=== PATIENT | male | born 1975 | race Caucasian/White ===

== ENCOUNTER 2018-02-14 12:53 | Inpatient (IN) | payer OTHER ==
[2018-02-14 13:26] VITALS: BMI 24.3
[2018-02-14] MEDS ORDERED: chlordiazePOXIDE HCL 25 MG CAPSULE PO PRN (17:09)
[2018-02-14] MEDS ORDERED: hydrOXYzine PAMOATE 50 MG CAPSULE (FP) PO PRN (17:09)
[2018-02-14] MEDS ORDERED: guaiFENesin/D-METHORPHAN HB 10 ML UNIT-DOSE CUPS PO PRN (17:09)
[2018-02-14] MEDS ORDERED: ACETAMINOPHEN 325 MG TABLET (FP) PO PRN (17:09)
[2018-02-14] MEDS ORDERED: MAGNESIUM CITRATE 300 ML BOTTLE PO PRN (17:09)
[2018-02-14] MEDS ORDERED: P-EPHED 60MG/TRIPROLIDI 2.5MG TABLET PO PRN (17:09)
[2018-02-14] MEDS ORDERED: MAGNESIUM HYDROX 2400MG/30ML ORAL SUSPENSION 30 ML CUP PO PRN (17:09)
[2018-02-14] MEDS ORDERED: NICOTINE POLACRILEX 2 MG GUM BC PRN (17:09)
[2018-02-14] MEDS ORDERED: MENTHOL/PHENOL 1 EACH UD MM PRN (17:09)
[2018-02-14] MEDS ORDERED: MAG HYDROX/AL HYDROX/SIMETH 30 ML UNIT-DOSE CUP PO PRN (17:09)
[2018-02-14] MEDS ORDERED: LOPERAMIDE HCL 2 MG CAPSULE PO PRN (17:09)
[2018-02-14] MEDS ORDERED: IBUPROFEN 400 MG TABLET (FP) PO PRN (17:09)
--- NOTE | 2018-02-14 17:19 | HP ---
CIWA Score - CIWA Score Nausea/Vomitin-No Nausea/No Vomiting Muscle Tremors: 3 Anxiety: 1-Mildly Anxious Agitation: 0-Normal Activity Paroxysmal Sweats: 3 Orientation: 0-Oriented Tacttile Disturbances: 0-None Auditory Disturbances: 0-None Visual Disturbances: 1-Very Mild Sensitivity Headache: 1-Very Mild CIWA-Ar Total Score: 9 Admission ROS BHS - HPI Chief Complaint: alcohol withdrawal sx Allergies/Adverse Reactions: Allergies Allergy/AdvReac Type Severity Reaction Status Date / Time Penicillins Allergy Severe Vomiting Verified 02/14/18 17:04 History of Present Illness: 42 yo male with hx of alcohol and nicotine dependence is here seeking detox. Denies any suicidal / homicidal ideation. Denies psychiatric and medical problems. Reports hx of psychiatric admission because he stated that he was hearing voices , does not recall date of admission. Reports was at [facility] last week and attempted to detox and left after 1.5 days. Denies hx of blackouts or seizures. Longest period of sobriety 2.5 years. Exam Limitations: No Limitations - Ebola screening Have you traveled outside of the country in the last 21 days: No Have you had contact with anyone from an Ebola affected area: No Have you been sick,other than usual withdrawal symptoms: No Do you have a fever: No - Review of Systems Constitutional: Chills, Changes in sleep, Unintentional Wgt. Loss EENT: reports: No Symptoms Reported Respiratory: reports: No Symptoms reported Cardiac: reports: No Symptoms Reported GI: reports: Poor Appetite, Poor Fluid Intake : reports: No Symptoms Reported Musculoskeletal: reports: No Symptoms Reported Integumentary: reports: No Symptoms Reported Neuro: reports: See HPI Endocrine: reports: Increased Thirst Hematology: reports: No Symptoms Reported Psychiatric: reports: Orientated x3, Depressed Other Systems: Reviewed and Negative Patient History - Patient Medical History Hx Anemia: No Hx Asthma: No Hx Chronic Obstructive Pulmonary Disease (COPD): No Hx Cancer: No Hx Cardiac Disorders: No Hx Congestive Heart Failure: No Hx Hypertension: No Hx Hypercholesterolemia: No Hx Pacemaker: No HX Cerebrovascular Accident: No Hx Seizures: No Hx Diabetes: No Hx Gastrointestinal Disorders: No Hx Liver Disease: No Hx Genitourinary Disorders: No Hx Sexually Transmitted Disorders: No Hx Renal Disease (ESRD): No Hx Thyroid Disease: No Hx Human Immunodeficiency Virus (HIV): No Hx Hepatitis C: No Hx Depression: No Hx Suicide Attempt: No Hx Bipolar Disorder: No Hx Schizophrenia: No - Patient Surgical History Past Surgical History: Yes Hx Orthopedic Surgery: Yes (sx for hammertoes both feet as a child.) - PPD History Previous Implant?: Yes Documented Results: Negative w/o proof Implanted On Prior [facility] Admission?: No PPD to be Administered?: Yes - Smoking Cessation Smoking history: Current every day smoker Have you smoked in the past 12 months: Yes Aproximately how many cigarettes per day: 11 Hx Chewing Tobacco Use: No Initiated information on smoking cessation: Yes 'Breaking Loose' booklet given: 02/14/18 - Substance & Tx. History Hx Alcohol Use: Yes Hx Substance Use: Yes Substance Use Type: Alcohol Hx Substance Use Treatment: Yes - Substances Abused Alcohol Route: Oral Frequency: Daily Amount used: 7-8 24 oz beers Age of first use: 10 Date of Last Use: 02/14/18 Marijuana/Hashish Route: Smoking Frequency: 1-2 times per week Amount used: 1/2 joint Age of first use: 16 Date of Last Use: 02/07/18 Family Disease History - Family Disease History Family History: Unable to Obtain Admission Physical Exam BHS - Vital Signs Vital Signs: Vital Signs - 24 hr 02/14/18 13:22 Temperature 97.6 F Pulse Rate 96 H Respiratory 18 Rate Blood Pressure 134/88 - Physical General Appearance: Yes: Disheveled, Alcohol on Breath, Tremorous, Sweating, Other (malodorous, dischevelled, patient not dressed appropriately for weather, currently 87 degree weather patient wearing winter clothing) HEENTM: Yes: EOMI, Hearing grossly Normal, Normal ENT Inspection, Normocephalic , Normal Voice, LOUISA, Pharynx Normal, Tm's normal Respiratory: Yes: Chest Non-Tender, Lungs Clear, No Respiratory Distress, No Accessory Muscle Use, Wheezing Neck: Yes: No masses,lesions,Nodules, Trachea in good position Breast: Yes: Breast Exam Deferred Cardiology: Yes: Regular Rhythm, Regular Rate Abdominal: Yes: Normal Bowel Sounds, Non Tender, Flat, Soft Genitourinary: Yes: Within Normal Limits Back: Yes: Normal Inspection Musculoskeletal: Yes: full range of Motion, Gait Steady, Pelvis Stable Extremities: Yes: Normal Capillary Refill, Normal Inspection, Normal Range of Motion, Non-Tender Neurological: Yes: wine specialist II-XII NML intact, Fully Oriented, Motor Strength 5/5, Other (flat affect) Integumentary: Yes: Normal Color, Warm, Diaphoresis, Other (slivery flaky skin around bear, healing abrasion on the left forearm) Lymphatic: Yes: Within Normal Limits - Diagnostic (1) Alcohol dependence with withdrawal Current Visit: Yes Status: Acute Qualifiers: Complication of substance-induced condition: uncomplicated Qualified Code(s ): F10.230 - Alcohol dependence with withdrawal, uncomplicated (2) Dehydration Current Visit: Yes Status: Acute (3) Weight loss Current Visit: Yes Status: Acute (4) Nicotine dependence Current Visit: Yes Status: Acute Qualifiers: Nicotine product type: cigarettes Cleared for Admission [facility] - Detox or Rehab [facility] Level of Care: Medically Supervised Detox Regimen/Protocol: Librium [facility] Breath Alcohol Content Breath Alcohol Content: 0.265 Urine Drug Screen - Results Drug Screen Negative: No Urine Drug Screen Results: BZO-Benzodiazepines
[2018-02-14] MEDS ORDERED: chlordiazePOXIDE HCL 25 MG CAPSULE PO ONE (17:45)
[2018-02-14] MEDS: chlordiazePOXIDE HCL 25 MG CAPSULE PO SCH (22:12)
[2018-02-14] MEDS: MELATONIN 5 MG TABLETS PO PRN (22:14)
[2018-02-14] MEDS: THIAMINE HCL 100 MG TABLET (FP) PO SCH (22:14)
[2018-02-14 23:11] LABS: URINE APPEARANCE CLEAR; URINE BILIRUBIN NEGATIVE (<2.0 mg/dL); URINE COLOR LTYELLOW; URINE GLUCOSE (UA) NEGATIVE (NEGATIVE); URINE KETONE NEGATIVE (NEGATIVE); URINE LEUK ESTERASE NEGATIVE (NEGATIVE); URINE NITRITE NEGATIVE (NEGATIVE); URINE PROTEIN NEGATIVE (NEGATIVE); URINE UROBILINOGEN NEGATIVE mg/dL (0.2-1.0)
[2018-02-15] MEDS: chlordiazePOXIDE HCL 25 MG CAPSULE PO SCH ×4 (06:02→22:06)
[2018-02-15 10:06] LABS: HEMATOCRIT 30.7 % (35.4-49); HEMOGLOBIN 9.6 GM/dL (11.7-16.9); MCH 23.6 pg (25.7-33.7); MCHC 31.2 g/dl (32.0-35.9); MEAN CELL VOLUME 75.8 fl (80-96); MEAN PLT VOLUME 8.6 fl (7.5-11.1); PLATELET COUNT 194 K/MM3 (134-434); RBC 4.05 M/mm3 (4.00-5.60); RDW 21.6 % (11.9-15.9); WHITE BLOOD COUNT 6.3 K/mm3 (4.0-10.0)
[2018-02-15 10:20] LABS: CHLORIDE 105 mmol/L (98-107); POTASSIUM 3.8 mmol/L (3.5-5.1); SODIUM 139 mmol/L (136-145)
[2018-02-15 10:40] LABS: ALBUMIN 3.1 g/dl (3.4-5.0); ALK PHOS 72 U/L (45-117); ANION GAP 6 (8-16); BILIRUBIN,TOTAL 0.3 mg/dL (0.2-1.0); BLOOD UREA NITROGEN 9 mg/dL (7-18); CO2 28 mmol/L (21-32); CREATININE 0.7 mg/dL (0.7-1.3); GLUCOSE,RANDOM 97 mg/dL (74-106); SGOT/AST 18 U/L (15-37); SGPT/ALT 15 U/L (12-78); TOT PROT 6.2 g/dl (6.4-8.2)
[2018-02-15] MEDS: PRENATAL VITAMINS W/ FOLIC ACID TABLET (FP) PO SCH (10:42)
[2018-02-15] MEDS: NICOTINE 14 MG/24 HOURS TOPICAL PATCH TD SCH (10:42)
[2018-02-15 11:18] LABS: ANISOCYTOSIS 1+
--- NOTE | 2018-02-15 11:28 | EKG ---
Test Reason : Blood Pressure : / mmHG Vent. Rate : 087 BPM Atrial Rate : 087 BPM P-R Int : 136 ms QRS Dur : 086 ms QT Int : 362 ms P-R-T Axes : 060 -07 046 degrees QTc Int : 435 ms NORMAL SINUS RHYTHM NORMAL ECG NO PREVIOUS ECGS AVAILABLE Confirmed by DEEPTHI RIVAS MD ([id number]) on 02/15/2018 11:28:31 AM Referred By: Confirmed By:DEEPTHI RIVAS MD
--- NOTE | 2018-02-15 14:33 | CONSULT ---
[facility] Psychiatric Consult - Data Date of interview: 02/15/18 Admission source: [facility] Identifying data: First admission to [facility] for this 42 y/o male seeking detox treatment on for alcohol and cannabis (K2) dependence.Patient is single without children,domiciled,unemployed and supported on food stamps. Substance Abuse History: Confirmed by patient in this interview.Smoking history : Current every day smoker. Have you smoked in the past 12 months: Yes. Aproximately how many cigarettes per day: 11. Hx Chewing Tobacco Use: No. Initiated information on smoking cessation: Yes. 'Breaking Loose' booklet given : 02/14/18. - Substance & Tx. History. Hx Alcohol Use: Yes. Hx Substance Use : Yes. Substance Use Type: Alcohol. Hx Substance Use Treatment: Yes. - Substances Abused. Alcohol. Route: Oral. Frequency: Daily. Amount used: 7 -8 24 oz beers. Age of first use: 10. Date of Last Use: 02/14/18. Marijuana /Hashish. Route: Smoking. Frequency: 1-2 times per week. Amount used: 1/2 joint. Age of first use: 16. Date of Last Use: 02/07/18 Medical History: Patient endorses good general health. Psychiatric History: Patient denies. Physical/Sexual Abuse/Trauma History: Patient denies. Additional Comment: Urine Drug Screen Results: BZO-Benzodiazepines.Noted. Mental Status Exam - Mental Status Exam Alert and Oriented to: Time, Place, Person Cognitive Function: Good Patient Appearance: Well Groomed Mood: Hopeful, Euthymic Affect: Appropriate, Normal Range Patient Behavior: Fatigued, Cooperative Speech Pattern: Clear, Appropriate Voice Loudness: Normal Thought Process: Intact, Goal Oriented Thought Disorder: Not Present Hallucinations: Denies Suicidal Ideation: Denies Homicidal Ideation: Denies Insight/Judgement: Poor Sleep: Poorly, Difficulty falling asleep Appetite: Good Muscle strength/Tone: Normal Gait/Station: Normal Psychiatric Findings - Problem List ([place] 1, 2,3) (1) Alcohol dependence with withdrawal Status: Acute Qualifiers: Complication of substance-induced condition: uncomplicated Qualified Code(s ): F10.230 - Alcohol dependence with withdrawal, uncomplicated (2) Nicotine dependence Status: Chronic Qualifiers: Nicotine product type: cigarettes Substance use status: uncomplicated Qualified Code(s): F17.210 - Nicotine dependence, cigarettes, uncomplicated (3) Insomnia Status: Acute - Initial Treatment Plan Initial Treatment Plan: Psychoeducation.Sleep hygiene.Detoxification in progress.Ambien 10 mg po hs prn.Side effects/benefits discussed with the patient.Agrees with this careplan.Observation.
--- NOTE | 2018-02-15 16:19 | PN ---
[facility] CIWA - CIWA Score Nausea/Vomitin-No Nausea/No Vomiting Muscle Tremors: 3 Anxiety: 4-Mod. Anxious/Guarded Agitation: 3 Paroxysmal Sweats: No Perspiration Orientation: 0-Oriented Tacttile Disturbances: 3-Moderate Itch/Numb/Burn Auditory Disturbances: 3-Moderate Harsh/Frighten Visual Disturbances: 0-None Headache: 0-None Present CIWA-Ar Total Score: 16 BHS Progress Note (SOAP) Subjective: Interrupted Sleep, Fatigue, Anxious, Tremors. Objective: PATIENT A & O X 3, OBSERVED AMBULATING ON UNIT. NO ACUTE DISTRESS. 02/15/18 16:20 Vital Signs Temperature 96.8 F L 02/15/18 13:09 Pulse Rate 61 02/15/18 13:09 Respiratory Rate 18 02/15/18 13:09 Blood Pressure 136/88 02/15/18 13:09 O2 Sat by Pulse Oximetry (%) Laboratory Tests 02/14/18 02/15/18 02/15/18 22:30 07:50 07:50 WBC 6.3 RBC 4.05 Hgb 9.6 L Hct 30.7 L MCV 75.8 L MCH 23.6 L MCHC 31.2 L RDW 21.6 H Plt Count 194 MPV 8.6 Hypochromia 2+ Anisocytosis 1+ Sodium 139 Potassium 3.8 Chloride 105 Carbon Dioxide 28 Anion Gap 6 L BUN 9 Creatinine 0.7 Creat Clearance w eGFR > 60 Random Glucose 97 Calcium 8.0 L Total Bilirubin 0.3 AST 18 ALT 15 Alkaline Phosphatase 72 Total Protein 6.2 L Albumin 3.1 L Urine Color Ltyellow Urine Appearance Clear Urine pH 5.0 Ur Specific [place] 1.012 Urine Protein Negative Urine Glucose (UA) Negative Urine Ketones Negative Urine Blood Negative Urine Nitrite Negative Urine Bilirubin Negative Urine Urobilinogen Negative Ur Leukocyte Esterase Negative RPR Titer 02/15/18 07:50 WBC RBC Hgb Hct MCV MCH MCHC RDW Plt Count MPV Hypochromia Anisocytosis Sodium Potassium Chloride Carbon Dioxide Anion Gap BUN Creatinine Creat Clearance w eGFR Random Glucose Calcium Total Bilirubin AST ALT Alkaline Phosphatase Total Protein Albumin Urine Color Urine Appearance Urine pH Ur Specific [place] Urine Protein Urine Glucose (UA) Urine Ketones Urine Blood Urine Nitrite Urine Bilirubin Urine Urobilinogen Ur Leukocyte Esterase RPR Titer Nonreactive LABS NOTED. Assessment: 02/15/18 16:21 WITHDRAWAL SYMPTOMS. MICROCYTIC ANEMIA. 02/15/18 16:21 Plan: CONTINUE DETOX. FEOSOL, 325 MG PO BIDWM.
[2018-02-15] MEDS: FERROUS SO4 325 MG TABLET (FP) PO SCH (17:31)
[2018-02-15] MEDS ORDERED: ZOLPIDEM TARTRATE 10 MG TABLET (PARK CARE ONLY) PO PRN (22:00)
[2018-02-15] MEDS: MELATONIN 5 MG TABLETS PO PRN (22:06)
[2018-02-15] MEDS: THIAMINE HCL 100 MG TABLET (FP) PO SCH (22:06)
[2018-02-16] MEDS: chlordiazePOXIDE HCL 25 MG CAPSULE PO SCH ×3 (05:29→17:43)
[2018-02-16] MEDS: FERROUS SO4 325 MG TABLET (FP) PO SCH ×2 (07:31→17:43)
[2018-02-16] MEDS: PRENATAL VITAMINS W/ FOLIC ACID TABLET (FP) PO SCH (10:40)
[2018-02-16] MEDS: NICOTINE 14 MG/24 HOURS TOPICAL PATCH TD SCH (10:41)
[2018-02-16] MEDS: SULFAMETHOXAZOLE/TRIMETHOPRIM 800MG/160MG D.S. TABLET PO SCH ×2 (10:41→22:37)
[2018-02-16] MEDS: BACITRACIN 0.9 GM PACKET TP SCH ×2 (10:41→22:36)
--- NOTE | 2018-02-16 15:50 | PN ---
[facility] CIWA - CIWA Score Nausea/Vomitin-No Nausea/No Vomiting Muscle Tremors: 3 Anxiety: 4-Mod. Anxious/Guarded Agitation: 2 Paroxysmal Sweats: 3 Orientation: 0-Oriented Tacttile Disturbances: 3-Moderate Itch/Numb/Burn Auditory Disturbances: 0-None Visual Disturbances: 0-None Headache: 0-None Present CIWA-Ar Total Score: 15 BHS Progress Note (SOAP) Subjective: Sweating, Anxious, Tremors. Patient reports a "boil" on his chin, which he "popped" himself with his own hands a little earlier. Objective: PATIENT A & O X 3, OBSERVED AMBULATING ON UNIT. NO ACUTE DISTRESS. ERYHTEMATOUS CYST-LIKE GROWTH NOTED ON RIGHT SIDE OF PATIENT'S CHIN. 02/16/18 15:47 Vital Signs Temperature 97.4 F L 02/16/18 14:54 Pulse Rate 116 H 02/16/18 14:54 Respiratory Rate 18 02/16/18 14:54 Blood Pressure 139/86 02/16/18 14:54 O2 Sat by Pulse Oximetry (%) Laboratory Tests 02/14/18 02/15/18 02/15/18 22:30 07:50 07:50 WBC 6.3 RBC 4.05 Hgb 9.6 L Hct 30.7 L MCV 75.8 L MCH 23.6 L MCHC 31.2 L RDW 21.6 H Plt Count 194 MPV 8.6 Hypochromia 2+ Anisocytosis 1+ Sodium 139 Potassium 3.8 Chloride 105 Carbon Dioxide 28 Anion Gap 6 L BUN 9 Creatinine 0.7 Creat Clearance w eGFR > 60 Random Glucose 97 Calcium 8.0 L Total Bilirubin 0.3 AST 18 ALT 15 Alkaline Phosphatase 72 Total Protein 6.2 L Albumin 3.1 L Urine Color Ltyellow Urine Appearance Clear Urine pH 5.0 Ur Specific [place] 1.012 Urine Protein Negative Urine Glucose (UA) Negative Urine Ketones Negative Urine Blood Negative Urine Nitrite Negative Urine Bilirubin Negative Urine Urobilinogen Negative Ur Leukocyte Esterase Negative RPR Titer 02/15/18 07:50 WBC RBC Hgb Hct MCV MCH MCHC RDW Plt Count MPV Hypochromia Anisocytosis Sodium Potassium Chloride Carbon Dioxide Anion Gap BUN Creatinine Creat Clearance w eGFR Random Glucose Calcium Total Bilirubin AST ALT Alkaline Phosphatase Total Protein Albumin Urine Color Urine Appearance Urine pH Ur Specific [place] Urine Protein Urine Glucose (UA) Urine Ketones Urine Blood Urine Nitrite Urine Bilirubin Urine Urobilinogen Ur Leukocyte Esterase RPR Titer Nonreactive LABS NOTED. Assessment: 02/16/18 15:48 WITHDRAWAL SYMPTOMS. ANEMIA. CYST. 02/16/18 15:50 Plan: CONTINUE DETOX. BACTRIM DS BID, TOPICAL BACITRACIN FOR CYST ON CHIN. CONTINUE FEOSOL.
[2018-02-16] MEDS: THIAMINE HCL 100 MG TABLET (FP) PO SCH (22:36)
[2018-02-16] MEDS: chlordiazePOXIDE 5 MG CAPSULE PO SCH (22:36)
[2018-02-16] MEDS: MELATONIN 5 MG TABLETS PO PRN (22:38)
[2018-02-17] MEDS: chlordiazePOXIDE 5 MG CAPSULE PO SCH ×3 (05:24→17:25)
[2018-02-17] MEDS: FERROUS SO4 325 MG TABLET (FP) PO SCH ×2 (07:12→17:25)
[2018-02-17] MEDS: PRENATAL VITAMINS W/ FOLIC ACID TABLET (FP) PO SCH (10:22)
[2018-02-17] MEDS: SULFAMETHOXAZOLE/TRIMETHOPRIM 800MG/160MG D.S. TABLET PO SCH ×2 (10:22→22:36)
[2018-02-17] MEDS: BACITRACIN 0.9 GM PACKET TP SCH ×2 (10:22→22:37)
[2018-02-17] MEDS: NICOTINE 14 MG/24 HOURS TOPICAL PATCH TD SCH (10:23)
--- NOTE | 2018-02-17 15:03 | PN ---
BHS Progress Note (SOAP) Subjective: Anxious, nervous, sweating Objective: 02/17/18 15:02 Last Vital Signs Temp Pulse Resp BP Pulse Ox 97.6 F 112 H 20 114/79 02/17/18 09:59 02/17/18 09:59 02/17/18 09:59 02/17/18 09:59 Laboratory Tests 02/14/18 02/15/18 02/15/18 22:30 07:50 07:50 WBC 6.3 RBC 4.05 Hgb 9.6 L Hct 30.7 L MCV 75.8 L MCH 23.6 L MCHC 31.2 L RDW 21.6 H Plt Count 194 MPV 8.6 Hypochromia 2+ Anisocytosis 1+ Sodium 139 Potassium 3.8 Chloride 105 Carbon Dioxide 28 Anion Gap 6 L BUN 9 Creatinine 0.7 Creat Clearance w eGFR > 60 Random Glucose 97 Calcium 8.0 L Total Bilirubin 0.3 AST 18 ALT 15 Alkaline Phosphatase 72 Total Protein 6.2 L Albumin 3.1 L Urine Color Ltyellow Urine Appearance Clear Urine pH 5.0 Ur Specific [place] 1.012 Urine Protein Negative Urine Glucose (UA) Negative Urine Ketones Negative Urine Blood Negative Urine Nitrite Negative Urine Bilirubin Negative Urine Urobilinogen Negative Ur Leukocyte Esterase Negative RPR Titer 02/15/18 07:50 WBC RBC Hgb Hct MCV MCH MCHC RDW Plt Count MPV Hypochromia Anisocytosis Sodium Potassium Chloride Carbon Dioxide Anion Gap BUN Creatinine Creat Clearance w eGFR Random Glucose Calcium Total Bilirubin AST ALT Alkaline Phosphatase Total Protein Albumin Urine Color Urine Appearance Urine pH Ur Specific [place] Urine Protein Urine Glucose (UA) Urine Ketones Urine Blood Urine Nitrite Urine Bilirubin Urine Urobilinogen Ur Leukocyte Esterase RPR Titer Nonreactive Labs reviewed Assessment: 02/17/18 15:03 Withdrawal symptoms Plan: Continue detox Encouraged PO water hydration
[2018-02-17] MEDS: chlordiazePOXIDE HCL 10 MG CAPSULE PO SCH (22:36)
[2018-02-17] MEDS: THIAMINE HCL 100 MG TABLET (FP) PO SCH (22:36)
[2018-02-17] MEDS: MELATONIN 5 MG TABLETS PO PRN (22:37)
[2018-02-18] MEDS: chlordiazePOXIDE HCL 10 MG CAPSULE PO SCH (06:07)
[2018-02-18 06:53] VITALS: BP 113/81; PULSE 75; TEMP 96.7
[2018-02-18] MEDS: FERROUS SO4 325 MG TABLET (FP) PO SCH (07:55)
[2018-02-18] MEDS: NICOTINE 14 MG/24 HOURS TOPICAL PATCH TD SCH (09:38)
[2018-02-18] MEDS: SULFAMETHOXAZOLE/TRIMETHOPRIM 800MG/160MG D.S. TABLET PO SCH (09:38)
[2018-02-18] MEDS: BACITRACIN 0.9 GM PACKET TP SCH (09:38)
[2018-02-18] MEDS: PRENATAL VITAMINS W/ FOLIC ACID TABLET (FP) PO SCH (09:38)
--- NOTE | 2018-02-18 15:48 | PN ---
BHS Progress Note (SOAP) Subjective: States " I feel good" Objective: 02/18/18 15:44 A & O x 3 Vital Signs Temperature 96.7 F L 02/18/18 06:52 Pulse Rate 75 02/18/18 06:52 Respiratory Rate 18 02/18/18 06:52 Blood Pressure 113/81 02/18/18 06:52 O2 Sat by Pulse Oximetry (%) Assessment: 02/18/18 15:47 Detox safely completed Plan: for d/c
--- NOTE | 2018-02-18 15:53 | DS ---
[facility] Detox Discharge Summary Admission Date: 02/14/18 Discharge Date: 02/18/18 - History Additional Comments: pt for d/c Will do aftercare at [facility] 5N Pertinent Past History: anemia Insomnia dehydration - Physical Exam Results Vital Signs: Vital Signs Temperature 96.7 F L 02/18/18 06:52 Pulse Rate 75 02/18/18 06:52 Respiratory Rate 18 02/18/18 06:52 Blood Pressure 113/81 02/18/18 06:52 O2 Sat by Pulse Oximetry (%) Pertinent Admission Physical Exam Findings: withdrawal sx - Treatment Hospital Course: Detox Protocol Followed, Detoxed Safely, Responded well, Discharged Condition Good, Rehab Referral Accepted Patient has Accepted a Rehab Referral to: [facility] Rehab - Medication Discharge Medications: Ambulatory Orders NK [No Known Home Medication] 02/14/18 - Diagnosis (1) Alcohol dependence with withdrawal Status: Acute Qualifiers: Complication of substance-induced condition: uncomplicated Qualified Code(s ): F10.230 - Alcohol dependence with withdrawal, uncomplicated (2) Dehydration Status: Acute (3) Insomnia Status: Acute (4) Weight loss Status: Acute (5) Anemia Status: Chronic Qualifiers: Anemia type: unspecified type Qualified Code(s): D64.9 - Anemia, unspecified (6) Nicotine dependence Status: Chronic Qualifiers: Nicotine product type: cigarettes Substance use status: uncomplicated Qualified Code(s): F17.210 - Nicotine dependence, cigarettes, uncomplicated - AMA Did Patient Leave Against Medical Advice: No
== END 2018-02-18 08:55 | disposition home or self-care (01) | DRG 775 ==
LOC: YASAS 12:53 → Y3N 17:31
PROVIDERS: ADMIT Internal Medicine; ATTEND Internal Medicine
PROC: HZ2ZZZZ Detoxification Services for Substance Abuse Treatment (ICD-10-PCS; principal; 2018-02-14)
DX: F10.230 Alcohol dependence with withdrawal, uncomplicated (principal); F17.210 Nicotine dependence, cigarettes, uncomplicated; G47.00 Insomnia, unspecified; E86.0 Dehydration; D64.9 Anemia, unspecified; D36.7 Benign neoplasm of other specified sites; R63.4 Abnormal weight loss; Z68.24 Body mass index [BMI] 24.0-24.9, adult
CPT/HCPCS: 36415; 80053; 81003; 85027; 86593; 93005; 93010